=== PATIENT | male | born 1995 | race Caucasian/White ===

== ENCOUNTER 2016-06-02 20:44 | Emergency (ER) | payer MEDICAID ==
[~2016-06-02] VITALS: Ht 160 cm; Wt 61.0 kg
[~2016-06-02 20:44] MED LIST: CYCL-259 PO; GABA100C8 PO; OXYC-229 PO
[2016-06-02 22:09] VITALS: BP 132/87
[2016-06-02] MEDS ORDERED: HYDROmorphone 1 MG/ML, 1ML ONE (22:15)
[2016-06-02] MEDS ORDERED: KETOROLAC 30 MG/1 ML ONE (22:15)
[2016-06-02] MEDS ORDERED: DEXAMETHASONE 4 MG TABLET ONE (22:15)
[2016-06-02] MEDS ORDERED: CYCLOBENZAPRINE 10 MG TABLET ONE (22:15)
[2016-06-02] MEDS ORDERED: CYCLOBENZAPRINE 10 MG TABLET PO ONE (22:30)
[2016-06-02] MEDS ORDERED: DEXAMETHASONE 4 MG/ML, 1ML PO ONE (22:30)
[2016-06-02] MEDS ORDERED: HYDROmorphone 1 MG/ML, 1ML IM ONE (22:30)
[2016-06-02] MEDS ORDERED: KETOROLAC 30 MG/1 ML IM ONE (22:30)
== END 2016-06-02 23:02 | disposition home or self-care (01) ==
LOC: ED 22:50
DX: S39.012A Strain of muscle, fascia and tendon of lower back, initial encounter (principal); W18.49XA Other slipping, tripping and stumbling without falling, initial encounter; Y93.39 Activity, other involving climbing, rappelling and jumping off; Y99.8 Other external cause status; Y92.89 Other specified places as the place of occurrence of the external cause
CPT/HCPCS: 96372; 99284; J1100; J1170; J1885

== ENCOUNTER 2016-06-23 16:05 | Emergency (ER) | payer MEDICAID ==
[~2016-06-23] VITALS: Ht 160 cm; Wt 55.0 kg
[2016-06-23 16:10] VITALS: BP 144/80
[2016-06-23] MEDS ORDERED: DIAZEPAM 5 MG/ML, 2ML IVPush ONE (17:00)
[2016-06-23] MEDS ORDERED: KETOROLAC 30 MG/1 ML IVPush ONE (17:00)
[2016-06-23] MEDS ORDERED: SODIUM CHLORIDE 0.9% 1,000ML IV ONE (17:00)
[2016-06-23] MEDS ORDERED: DIAZEPAM 5 MG/ML, 2ML ONE (17:22)
[2016-06-23] MEDS ORDERED: KETOROLAC 30 MG/1 ML ONE (17:22)
[2016-06-23] MEDS ORDERED: HYDROmorphone 1 MG/ML, 1ML ONE ×2 (17:22→17:49)
[2016-06-23] MEDS: HYDROmorphone 1 MG/ML, 1ML IVPush PRN ×2 (17:27→17:52)
== END 2016-06-23 18:16 | disposition home or self-care (01) ==
LOC: ED 16:48
DX: M51.36 Other intervertebral disc degeneration, lumbar region (principal); M54.16 Radiculopathy, lumbar region; M54.9 Dorsalgia, unspecified; G89.29 Other chronic pain; M54.30 Sciatica, unspecified side
CPT/HCPCS: 96361; 96374; 96375; 99284; J1170; J1885; J3360; J7030

== ENCOUNTER 2016-09-02 20:57 | Emergency (ER) | payer MEDICAID ==
[~2016-09-02] VITALS: Ht 160 cm; Wt 55.0 kg
[~2016-09-02 20:57] MED LIST changes: +GABA-826 PO; -GABA100C8 PO
[2016-09-02] MEDS ORDERED: HYDROmorphone 1 MG/ML, 1ML ONE (22:27)
[2016-09-02] MEDS ORDERED: KETOROLAC 30 MG/1 ML ONE ×2 (22:28)
[2016-09-02] MEDS ORDERED: KETOROLAC 30 MG/1 ML IM ONE (22:30)
[2016-09-02] MEDS ORDERED: HYDROmorphone 1 MG/ML, 1ML IM ONE (22:30)
[2016-09-02] MEDS ORDERED: DIAZEPAM 5 MG TABLET ONE (23:28)
[2016-09-02] MEDS ORDERED: DIAZEPAM 5 MG TABLET PO ONE (23:30)
[2016-09-03 00:02] VITALS: BP 132/80
[2016-09-03] MEDS ORDERED: HYDROmorphone 1 MG/ML, 1ML IM PRN (00:30)
[2016-09-03] MEDS ORDERED: HYDROmorphone 1 MG/ML, 1ML ONE (00:59)
== END 2016-09-03 01:08 | disposition home or self-care (01) ==
LOC: ED 22:46
DX: M54.42 Lumbago with sciatica, left side (principal); G89.29 Other chronic pain; M79.672 Pain in left foot; M79.671 Pain in right foot; W19.XXXA Unspecified fall, initial encounter; Y93.89 Activity, other specified; Y99.8 Other external cause status; Y92.89 Other specified places as the place of occurrence of the external cause
CPT/HCPCS: 72110; 96372; 99284; J1170; J1885; J7512

== ENCOUNTER 2016-10-25 18:04 | Emergency (ER) | payer MEDICAID ==
[~2016-10-25] VITALS: Ht 160 cm; Wt 54.0 kg
[~2016-10-25 18:04] MED LIST changes: -OXYC-229 PO; +OXYC-307 PO
[2016-10-25] MEDS ORDERED: HYDROmorphone 1 MG/ML, 1ML IVPush PRN (18:30)
[2016-10-25] MEDS ORDERED: HYDROmorphone 1 MG/ML, 1ML ONE (18:31)
[2016-10-25 20:22] VITALS: BP 110/76
[2016-10-25] MEDS ORDERED: KETOROLAC 30 MG/1 ML IVPush ONE (20:30)
== END 2016-10-25 20:25 | disposition home or self-care (01) ==
LOC: ED 20:15
DX: S16.1XXA Strain of muscle, fascia and tendon at neck level, initial encounter (principal); S39.012A Strain of muscle, fascia and tendon of lower back, initial encounter; S00.93XA Contusion of unspecified part of head, initial encounter; S70.11XA Contusion of right thigh, initial encounter; S80.01XA Contusion of right knee, initial encounter; S70.12XA Contusion of left thigh, initial encounter; S80.02XA Contusion of left knee, initial encounter; M43.16 Spondylolisthesis, lumbar region; W01.0XXA Fall on same level from slipping, tripping and stumbling without subsequent striking against object, initial encounter; Y93.89 Activity, other specified; Y92.488 Other paved roadways as the place of occurrence of the external cause; Y99.8 Other external cause status
CPT/HCPCS: 70450; 71010; 72125; 72131; 72190; 96374; 99284; J1170

== ENCOUNTER 2020-08-29 18:52 | Emergency (ER) | payer MEDICAID ==
[~2020-08-29] VITALS: Ht 160 cm; Wt 65.3 kg
[~2020-08-29 18:52] MED LIST changes: -CYCL-259 PO; +CYCL10TA2 PO; -OXYC-307 PO; +OXYC-380 PO
[2020-08-29 19:01] VITALS: BP 117/66
--- NOTE | 2020-08-29 19:10 | NUR ---
PT AMBULATES FROM TRIAGE TO ROOM WITH STEADY GAIT.
--- NOTE | 2020-08-29 20:43 | NUR ---
PT D/C WITH D/C SUMMARY AND SCRIPTS. ALL QUESTIONS ANSWERED. PT FOOT DRESSED WITH GAUZE AND PT VERBALIZES HOME CARE INSTRUCTIONS. PT DENIES ANY NEEDS PERTAINING TO THIS VISIT AND AMBULATES TO REGISTRATION DESK WITH STEADY GAIT FOR D/C HOME.
== END 2020-08-29 20:47 | disposition home or self-care (01) ==
LOC: ED 19:22
DX: M79.671 Pain in right foot (principal)
CPT/HCPCS: 99283

== ENCOUNTER 2020-09-24 22:08 | Emergency (ER) | payer MEDICAID, OTHER ==
[~2020-09-24] VITALS: Ht 160 cm; Wt 66.8 kg
--- NOTE | 2020-09-24 23:52 | NUR ---
NA X 1
--- NOTE | 2020-09-25 00:02 | NUR ---
TO ROOM FROM LOBBY. NAD.
--- NOTE | 2020-09-25 00:07 | NUR ---
PT TO ROOM 12 FROM Blood cell Storage. PT C/O RASH UNDER LEFT ARMPIT X1 WEEK. CHANGED DEODORANT RECENTLY. PT DENIES ANY OTHER COMPLAINTS AT THIS TIME. SITTING UPRIGHT ON GURNEY, NADN, VSS. PT DENIES ANY NEEDS AT THIS TIME. CALL LIGHT AND PERSONAL BELONGINGS WITHIN REACH. AWAITING ERP
[2020-09-25 00:36] VITALS: BP 116/59
--- NOTE | 2020-09-25 00:42 | NUR ---
Patient given discharge instructions and they have confirmed that they understand the instructions. Patient ambulatory with steady gait. NAD, all questions answered appropriately, denies additional needs at this time. No personal belongings left in room after discharge.
== END 2020-09-25 00:44 | disposition home or self-care (01) ==
LOC: ED 09-25
DX: L03.112 Cellulitis of left axilla (principal); R21 Rash and other nonspecific skin eruption; L73.2 Hidradenitis suppurativa; F17.200 Nicotine dependence, unspecified, uncomplicated
CPT/HCPCS: 99283